=== PATIENT | male | born 1950 | race Caucasian/White ===

== ENCOUNTER 2017-05-03 10:34 | Day surgery (SDC) | payer MEDICARE ==
--- NOTE | ~2017-05-03 | EGD ---
EGD REPORT [facility] [address] [address] NAME: GEORGE NOVA : [birth year] STATUS : REG [facility] [place]#: [id number] AGE: 66 ADM/REG DATE : 05/03/17 MR#: [id number] REPORT SERV DATE: 05/03/17 DICTATED BY: DATE: REPORT STATUS : Draft TRANSCRIBED BY: [employer] DATE: 05/03/17 Endoscopy Center Patient Name: George Nova Date of : 1950 Attending MD: LINDA QUACH MD Procedure Date No Time: 05/03/2017 Procedure: Upper GI endoscopy Indications: Dysphagia, Surveillance for malignancy due to personal history of Mcdonough's esophagus, Abdominal bloating Referring MD: FAN RIVAS Medicines: Monitored Anesthesia Care Complications: No immediate complications. Procedure: Pre-Anesthesia Assessment: - ASA Grade Assessment: III - A patient with severe systemic disease. After obtaining informed consent, the endoscope was passed under direct vision. Throughout the procedure, the patient's blood pressure, pulse, and oxygen saturations were monitored continuously. The GIF [id number] was introduced through the mouth, and advanced to the second part of duodenum. The upper GI endoscopy was accomplished without difficulty. The patient tolerated the procedure well. Findings: The Z-line was irregular and was found at the gastroesophageal junction. Biopsies were taken with a cold forceps for histology. Evidence of a Suzi fundoplication was found at the gastroesophageal junction. The wrap appeared intact. This was traversed. A guidewire was placed and the scope was withdrawn. Dilation was performed with a Savary dilator with no resistance at 54 Fr. Estimated blood loss: none. No other significant abnormalities were identified in a careful examination of the esophagus. There is no endoscopic evidence of areas of erosion, hiatus hernia, ulcerations, varices or nodules in the entire esophagus. The entire examined stomach was normal. There is no endoscopic evidence of mucosal abnormalities, ulceration or varices in the entire examined stomach. The examined duodenum was normal. There is no endoscopic evidence of mucosal abnormalities, stenosis or ulceration in the entire examined duodenum. Biopsies two years ago showed no evidence of celiac disease. These were not repeated. The cardia and gastric fundus were otherwise normal on retroflexion. Impression: - Z-line irregular, at the gastroesophageal junction. EGD REPORT [facility] [address] [facility] [place]. [address] NAME: GEORGE NOVA : [birth year] STATUS : REG [facility] [place]#: [id number] AGE: 66 ADM/REG DATE : 05/03/17 MR#: [id number] REPORT SERV DATE: 05/03/17 DICTATED BY: DATE: REPORT STATUS : Draft TRANSCRIBED BY: [employer] DATE: 05/03/17 Biopsied. - A Suzi fundoplication was found. The wrap appears intact. Dilated. - Normal stomach. - Normal examined duodenum. Recommendation: - Patient has a contact number available for emergencies. The signs and symptoms of potential delayed complications were discussed with the patient. Return to normal activities tomorrow. Written discharge instructions were provided to the patient. - Return to previous diet. - Discharge patient to home. - Continue present medications. - Await pathology results. - Repeat the upper endoscopy in 3 years for surveillance. - Use simethicone drops or Gaviscon with each meal for bloating. Procedure Code(s): --- Professional --- 61188, Esophagogastroduodenoscopy, flexible, transoral; with insertion of guide wire followed by passage of dilator(s) through esophagus over guide wire 12348, Esophagogastroduodenoscopy, flexible, transoral; with biopsy, single or multiple Diagnosis Code(s): --- Professional --- K22.8, Other specified diseases of esophagus Z98.89, Other specified postprocedural states K22.70, Mcdonough's esophagus without dysplasia R13.10, Dysphagia, unspecified R14.0, Abdominal distension (gaseous) CPT copyright 2013 [employer]. All rights reserved. The codes documented in this report are preliminary and upon printed circuit designer review may be revised to meet current compliance requirements. LINDA QUACH MD 05/03/2017 1:29 PM This report has been signed electronically. Number of Addenda: 0 Note Initiated On: 05/03/2017 1:17 PM Scope Withdrawal Time 0 hours 0 minutes 0 seconds EGD REPORT [facility] [address] [facility] [place] [address] NAME: GEORGE NOVA Jon : [birth year] [place]US : [place] [facility] [place] [id number] AGE: 66 ADM/REG DATE : 05/03/17 MR#: [id number] REPORT SERV DATE: 05/03/17 DICTATED BY: DATE: REPORT STATUS : Draft TRANSCRIBED BY: [employer] DATE: 05/03/17 [place] [address]
[~2017-05-03 10:34] MED LIST: ASAB PO; ATV.5 PO; CIP5 PO; COREG6 PO; DSS PO; FISH OIL1200 MG PO; FISH-EPA1000 MG PO; FLEX PO; GLUCCHONDR PO; GLUCOPHAGE1000 MG PO; GLUCPH PO; IRON325 MG PO; JANUVIA100 MG PO; JANUVIA50 PO; LEVSINTAB SL; LOTE20 PO; MEGA RED; MULTIPLE VIT PO; MULTIVITAMI1 PO; NEUR100 PO; NEUR300 PO; NEXIUM40 PO; NIACIN 500 PO; NIASPAN500 PO; NITROQUICK0.4 MG SL; NORCO1 TA1 PO; OMEGA-3 KRILL PO; PCET PO; PLAVIX PO; PR12.5 PO; PROBIOTICS PO; PROTONIX PO; REST15 PO; VITAMIN B-121000 MC1 SL; ZANTAC150 MG PO; ZOCOR40 PO; ZOFRAN ODT4 MG PO; [UNRECOGNIZED DRUG - OTHER] PO
== END 2017-05-03 23:59 | disposition home or self-care (01) ==
LOC: DMU 10:34
PROVIDERS: Internal Medicine Gastroenterology
PROC: 0D758ZZ Dilation of Esophagus, Via Natural or Artificial Opening Endoscopic (ICD-10-PCS; principal; 2017-05-03 12:30)
DX: K22.8 Other specified diseases of esophagus (principal); K22.70 Barrett's esophagus without dysplasia; I10 Essential (primary) hypertension; E11.9 Type 2 diabetes mellitus without complications; I25.10 Atherosclerotic heart disease of native coronary artery without angina pectoris; I25.2 Old myocardial infarction; G47.33 Obstructive sleep apnea (adult) (pediatric); Z98.890 Other specified postprocedural states; Z88.8 Allergy status to other drugs, medicaments and biological substances; Z95.5 Presence of coronary angioplasty implant and graft
CPT/HCPCS: 82962; 88305